=== PATIENT | female | born 1960 | race Caucasian/White ===

== ENCOUNTER 2021-04-19 10:26 | Outpatient (CLI) | payer OTHER ==
[2021-04-19 20:37] LABS: SARS-CoV-2 PCR by NAA Not Detected (NotDetected)
== END 2021-04-19 10:27 | disposition home or self-care (01) ==
LOC: CSHLAB 10:26
PROVIDERS: ATTEND Internal Medicine Gastroenterology
DX: Z20.822 Contact with and (suspected) exposure to COVID-19 (principal); R13.10 Dysphagia, unspecified
CPT/HCPCS: 87635; U0003; U0005